=== PATIENT | female | born 1985 ===

== ENCOUNTER 2018-04-18 20:52 | Emergency (ER) | payer SELFPAY ==
[~2018-04-18] VITALS: Ht 157.5 cm; Wt 64.0 kg
[2018-04-18] MEDS ORDERED: ACETAMINOPHEN 325MG TABLET PO STA (22:57)
[2018-04-18] MEDS ORDERED: MAGNESIUM/ALUMINUM HYDROXIDE/SIMETHICONE 30ML UDC PO STA (22:57)
[2018-04-18 23:35] LABS: BASOPHILS % 0.5 % (0.0-2.0); EOSINOPHILS % 0.6 % (0.0-5.0); HEMATOCRIT. 33.5 % (36.0-48.0); HEMOGLOBIN. 10.9 g/dL (12.0-16.0); LYMPHOCYTES % 33.6 % (20.0-50.0); MEAN CORPUSCULAR HEMOGLOBIN 27.8 pg (28.0-32.0); MEAN CORPUSCULAR VOLUME 85.3 fL (81.0-99.0); MONOCYTES % 8.2 % (2.0-8.0); NEUTROPHILS % 57.1 % (40.0-76.0); PLATELET 376 x1000/uL (130-400); RED BLOOD CELL COUNT 3.93 mill/uL (4.2-5.4)
[2018-04-18 23:38] LABS: CHLORIDE 106 mEq/L (98-107)
[2018-04-18 23:50] LABS: ETHANOL BLOOD < 10 mg/dL
[2018-04-19 01:03] LABS: CLARITY URINE CLOUDY (CLEAR); COLOR URINE DARK YELLOW (YELLOW); KETONES URINE TRACE (NEGATIVE); LEUKOCYTE ESTERASE URINE 1+ (NEGATIVE); NITRITE URINE NEGATIVE (NEGATIVE); OCCULT BLOOD URINE 3+ (NEGATIVE); PH URINE 5.5 (4.5-8.0); PROTEIN URINE 1+ (NEGATIVE); SPECIFIC GRAVITY URINE 1.032 (1.005-1.030)
[2018-04-19 01:21] LABS: *BARBITURATES SCREEN URINE NEGATIVE (NEGATIVE); *BENZODIAZEPINES SCREEN URINE NEGATIVE (NEGATIVE); *COCAINE SCREEN URINE NEGATIVE (NEGATIVE); METHADONE URINE SCREEN NEGATIVE (NEGATIVE)
[2018-04-19 01:22] LABS: CANNABINOID URINE SCREEN NEGATIVE (NEGATIVE); OPIATES URINE SCREEN NEGATIVE (NEGATIVE); PHENCYCLIDINE URINE SCREEN NEGATIVE (NEGATIVE)
[2018-04-19 01:23] LABS: *AMPHETAMINES SCREEN URINE PRESUMTIVE POSITIVE (NEGATIVE)
[2018-04-19] MEDS ORDERED: LORAZEPAM 0.5MG TABLET PO ONE (01:45)
[2018-04-19 07:24] VITALS: BP 115/67
== END 2018-04-19 07:25 | disposition home or self-care (01) ==
LOC: ER 20:52
DX: N30.00 Acute cystitis without hematuria (principal); R10.9 Unspecified abdominal pain; F15.10 Other stimulant abuse, uncomplicated
CPT/HCPCS: 36415; 80053; 80305; 81003; 81025; 85025; 99284; G0482